=== PATIENT | male | born 1960 | race Caucasian/White ===

== ENCOUNTER 2024-05-25 13:27 | Inpatient (IN) | payer OTHER ==
[~2024-05-25] VITALS: Ht 180.3 cm; Wt 94.3 kg
[2024-05-25] VITALS (7 sets, daily range): BP systolic 103–108; BP diastolic 60–70; PULSE 63–72; RESP 15–18; TEMP 98.2–98.3; O2SAT 98–100
[2024-05-25 14:36] LABS: BASOPHILS # (AUTO) 0.1 (0.0-0.1); EOSINOPHILS # (AUTO) 0.6 (0.0-0.4); EOSINOPHILS % 7.6 % (0.0-6.0); LYMPHOCYTES # (AUTO) 1.5 (1.0-3.2); LYMPHOCYTES % 18.8 % (18.0-39.1); MEAN CORPUSCULAR HEMOGLOBIN 20.2 pg (28-32); MEAN CORPUSCULAR HGB CONC 27.9 g/dL (31-35); MEAN CORPUSCULAR VOLUME 72.5 fL (81-99); MONOCYTES # (AUTO) 0.8 (0.2-0.8); MONOCYTES % 10.2 % (4.4-11.3); NEUTROPHILS # (AUTO) 4.8 (2.1-6.9); NEUTROPHILS % 61.6 % (38.7-80.0); PLATELET COUNT 331 x10e3/uL (140-360); RED BLOOD COUNT 2.87 x10e6/uL (4.3-5.7); RED CELL DISTRIBUTION WIDTH 17.2 % (11.7-14.4); WHITE BLOOD COUNT 7.77 x10e3/uL (4.8-10.8)
[2024-05-25 14:38] LABS: HEMATOCRIT 20.8 % (38.2-49.6); HEMOGLOBIN 5.8 g/dL (14.0-18.0)
[2024-05-25 14:48] LABS: INR 3.09; PARTIAL THROMBOPLASTIN TIME 32.1 seconds (23.8-35.5); PROTHROMBIN TIME 33.3 seconds (11.9-14.5)
[2024-05-25 14:55] LABS: ALBUMIN 3.9 g/dL (3.5-5.0); ALBUMIN/GLOBULIN RATIO 1.1 (0.8-2.0); ANION GAP 18.6 mmol/L (8-16); BILIRUBIN,TOTAL 0.3 mg/dL (0.2-1.2); CALCIUM 9.3 mg/dL (8.4-10.2); CREATININE, SERUM 2.04 mg/dL (0.72-1.25); POTASSIUM 4.6 mmol/L (3.5-5.1); TOTAL PROTEIN 7.6 g/dL (6.5-8.1)
[2024-05-25] MEDS ORDERED: ONDANSETRON HCL INJ 2MG/ML 2ML 2 MG/ML VIAL IV PRN (15:45)
[2024-05-25] MEDS: SODIUM CHLORIDE 0.9% 1000ML 1,000 ML IV ONE (16:10)
[2024-05-25] MEDS ORDERED: SODIUM CHLORIDE 0.9% 250ML 250 ML ONE ×2 (16:57→20:10)
[2024-05-25] MEDS ORDERED: ONDANSETRON HCL4 MG PO (18:07)
[2024-05-25] MEDS ORDERED: METFORMIN HCL1000 MG PO (18:07)
[2024-05-25] MEDS ORDERED: SIMVASTATIN40 MG PO (18:07)
[2024-05-25] MEDS ORDERED: CETIRIZINE HCL10 MG PO (18:07)
[2024-05-25] MEDS ORDERED: FENOFIBRATE160 MG PO (18:07)
[2024-05-25] MEDS ORDERED: JARDIANCE25 MG PO (18:07)
[2024-05-25] MEDS ORDERED: LISINOPRIL20 MG PO (18:07)
[2024-05-25] MEDS ORDERED: LOPRESSOR25 MG PO (18:07)
[2024-05-25] MEDS ORDERED: ASPIRIN81 MG PO (18:07)
[2024-05-25] MEDS ORDERED: WARFARIN SODIUM4 MG PO (18:07)
[2024-05-25] MEDS ORDERED: OMEPRAZOLE40 MG PO (18:07)
[2024-05-25] MEDS ORDERED: TRESIBA FL100 UNIT/1 SQ (21:15)
[2024-05-25 21:33] LABS: FERRITIN 5.32 ng/mL (21.81-274.66)
[2024-05-26 00:15] VITALS: BP 112/64; PULSE 64; RESP 20; TEMP 98.3; O2SAT 99
[2024-05-26] MEDS ORDERED: SODIUM CHLORIDE 0.9% 250ML 0 ML ONE (01:06)
[2024-05-26] MEDS ORDERED: ACETAMINOPHEN 325 MG TAB PO PRN (02:00)
[2024-05-26] MEDS ORDERED: DOCUSATE SODIUM 100 MG CAP PO PRN (02:00)
[2024-05-26] MEDS ORDERED: GUAIFENESIN/DEXTROMETHORPHAN LIQD 5 ML UDC PO PRN (02:00)
[2024-05-26] MEDS ORDERED: MAGNESIUM/ALUMINUM/SIMETHICONE 30 ML UDC PO PRN (02:00)
[2024-05-26] MEDS ORDERED: MELATONIN 3 MG TAB PO PRN (02:00)
[2024-05-26] MEDS ORDERED: HYDRALAZINE HCL 20 MG/ML VIAL IV PRN (02:00)
[2024-05-26] MEDS ORDERED: DEXTROSE 50% SYRINGE 50 ML IV PRN (02:00)
[2024-05-26 04:00] VITALS: BP 126/69; PULSE 69; RESP 18; TEMP 98.5; O2SAT 98
[2024-05-26 06:29] LABS: BASOPHILS # (AUTO) 0.1 (0.0-0.1); BASOPHILS % 1.5 % (0.0-1.0); EOSINOPHILS # (AUTO) 0.8 (0.0-0.4); EOSINOPHILS % 10.3 % (0.0-6.0); HEMATOCRIT 26.1 % (38.2-49.6); HEMOGLOBIN 7.4 g/dL (14.0-18.0); LYMPHOCYTES # (AUTO) 2.1 (1.0-3.2); LYMPHOCYTES % 28.8 % (18.0-39.1); MEAN CORPUSCULAR HGB CONC 28.4 g/dL (31-35); MEAN CORPUSCULAR VOLUME 77.4 fL (81-99); MONOCYTES # (AUTO) 0.8 (0.2-0.8); MONOCYTES % 10.4 % (4.4-11.3); NEUTROPHILS # (AUTO) 3.5 (2.1-6.9); NEUTROPHILS % 48.6 % (38.7-80.0); PLATELET COUNT 259 x10e3/uL (140-360); RED BLOOD COUNT 3.37 x10e6/uL (4.3-5.7); RED CELL DISTRIBUTION WIDTH 18.9 % (11.7-14.4); WHITE BLOOD COUNT 7.28 x10e3/uL (4.8-10.8)
[2024-05-26] MEDS: INSULIN GLARGINE 100 UNITS/ML VIAL SQ ONE (06:36)
[2024-05-26 06:51] LABS: CALCIUM 7.9 mg/dL (8.4-10.2); CREATININE, SERUM 1.63 mg/dL (0.72-1.25)
[2024-05-26] MEDS: IRON SUCROSE 100 MG in SODIUM CHLORIDE 0.9% 100 ML IV SCH (08:35)
[2024-05-26] MEDS: FENOFIBRATE 145 MG TAB PO SCH (08:37)
[2024-05-26] MEDS: CYANOCOBALAMIN INJ 1,000 MCG/ML VIAL IM SCH (08:37)
[2024-05-26] MEDS: LORATADINE 10 MG TAB PO SCH (08:37)
[2024-05-26] MEDS: METOPROLOL TARTRATE 25 MG TAB PO SCH (08:37)
[2024-05-26 08:41] VITALS: BP 133/68; PULSE 65; RESP 16; TEMP 98.2; O2SAT 100
[2024-05-26] MEDS: INSULIN REGULAR, HUMAN 100 UNIT/1 ML SQ SCH (08:59)
[2024-05-26 09:00] VITALS: BP 133/68; PULSE 65; RESP 16; TEMP 98.2; O2SAT 100
[2024-05-26] MEDS ORDERED: OMEPRAZOLE40 MG PO (12:16)
[2024-05-26 12:52] VITALS: BP 126/67; PULSE 70; RESP 18; TEMP 97.8; O2SAT 100
[2024-05-26] MEDS: SODIUM CHLORIDE 0.9% 250ML 250 ML IV ONE (13:57)
[2024-05-26 16:00] VITALS: BP 106/56; PULSE 58; RESP 18; TEMP 98; O2SAT 100
[2024-05-26] MEDS ORDERED: WARFARIN SOD 2 MG TAB PO SCH (17:00)
[2024-05-26] MEDS ORDERED: WARFARIN SODIUM4 MG PO (18:06)
[2024-05-26] MEDS ORDERED: SIMVASTATIN 40 MG TAB PO SCH (21:00)
[2024-05-26] MEDS ORDERED: INSULIN GLARGINE 100 UNITS/ML VIAL SQ SCH (21:00)
[2024-05-27] MEDS ORDERED: WARFARIN SOD 3 MG TAB PO SCH (17:00)
== END 2024-05-26 18:01 | disposition home or self-care (01) | DRG 813 ==
LOC: ER 13:44 → ERHOLD 15:43 → MED/SURG3 17:38
PROVIDERS: ADMIT Internal Medicine Critical Care Medicine; ATTEND Internal Medicine Critical Care Medicine
PROC: 30233N1 Transfusion of Nonautologous Red Blood Cells into Peripheral Vein, Percutaneous Approach (ICD-10-PCS; principal; 2024-05-25)
DX: D68.32 Hemorrhagic disorder due to extrinsic circulating anticoagulants (principal); K92.2 Gastrointestinal hemorrhage, unspecified; N17.9 Acute kidney failure, unspecified; E11.22 Type 2 diabetes mellitus with diabetic chronic kidney disease; I12.9 Hypertensive chronic kidney disease with stage 1 through stage 4 chronic kidney disease, or unspecified chronic kidney disease; N18.30 Chronic kidney disease, stage 3 unspecified; D50.9 Iron deficiency anemia, unspecified; D51.9 Vitamin B12 deficiency anemia, unspecified; E78.5 Hyperlipidemia, unspecified; T45.515A Adverse effect of anticoagulants, initial encounter; I25.10 Atherosclerotic heart disease of native coronary artery without angina pectoris; Z79.82 Long term (current) use of aspirin; Z79.01 Long term (current) use of anticoagulants; Z79.84 Long term (current) use of oral hypoglycemic drugs; Z95.1 Presence of aortocoronary bypass graft; Z95.2 Presence of prosthetic heart valve; Z87.891 Personal history of nicotine dependence; Z82.49 Family history of ischemic heart disease and other diseases of the circulatory system
CPT/HCPCS: 36415; 74176; 80048; 80053; 82607; 82728; 82746; 82948; 83540; 83615; 84466; 85025; 85045; 85610; 85730; 86850; 86900; 86920; 93306; 99284; J1756; J2470; J3420; J7030; J7050; P9016